=== PATIENT | male | born 1980 | race Caucasian/White ===

== ENCOUNTER 2019-03-25 17:42 | Emergency (ER) | payer SELFPAY ==
[~2019-03-25] VITALS: Ht 188 cm; Wt 113.4 kg
[2019-03-25 18:12] VITALS: Ht 188 cm; Wt 113.4 kg
[2019-03-25 21:10] VITALS: BP 119/75
== END 2019-03-25 21:10 | disposition home or self-care (01) ==
LOC: ED 17:42
DX: S76.012A Strain of muscle, fascia and tendon of left hip, initial encounter (principal); R31.9 Hematuria, unspecified; A64 Unspecified sexually transmitted disease; Z98.890 Other specified postprocedural states; X58.XXXA Exposure to other specified factors, initial encounter; Y93.89 Activity, other specified; Y92.89 Other specified places as the place of occurrence of the external cause; Y99.8 Other external cause status
CPT/HCPCS: 87491; 87591; J0696